=== PATIENT | female | born 1955 | race Two or more races ===

== ENCOUNTER 2019-04-27 09:44 | Emergency (ER) | payer OTHER ==
[~2019-04-27] VITALS: Ht 162.6 cm; Wt 94.8 kg
== END 2019-04-27 14:00 | disposition home or self-care (01) ==
LOC: ER 09:44
DX: B34.9 Viral infection, unspecified (principal); R06.02 Shortness of breath

== ENCOUNTER 2019-06-03 10:36 | Emergency (ER) | payer OTHER ==
[~2019-06-03] VITALS: Ht 162.6 cm; Wt 94.3 kg
== END 2019-06-03 14:30 | disposition home or self-care (01) ==
LOC: ER 10:36
DX: I82.491 Acute embolism and thrombosis of other specified deep vein of right lower extremity (principal)

== ENCOUNTER 2019-07-11 18:08 | Emergency (ER) | payer OTHER ==
[~2019-07-11] VITALS: Ht 162.6 cm; Wt 94.3 kg
[2019-07-11] MEDS ORDERED: ELIQUIS5 MG (18:40)
== END 2019-07-11 21:17 | disposition home or self-care (01) ==
LOC: ER 18:08
DX: R21 Rash and other nonspecific skin eruption (principal)

== ENCOUNTER 2020-12-13 07:18 | Outpatient (CLI) | payer OTHER ==
[~2020-12-13 07:18] MED LIST: ELIQUIS5 MG
== END 2020-12-13 07:19 | disposition home or self-care (01) ==
LOC: LAB 07:18
DX: E03.8 Other specified hypothyroidism (principal); I82.501 Chronic embolism and thrombosis of unspecified deep veins of right lower extremity; E78.00 Pure hypercholesterolemia, unspecified; I10 Essential (primary) hypertension; N39.0 Urinary tract infection, site not specified; E55.9 Vitamin D deficiency, unspecified

== ENCOUNTER → 2024-08-24 | Emergency (ER) | payer OTHER ==
[~2024-08-24] VITALS: Ht 162.6 cm; Wt 86.2 kg
[~2024-08-24] MED LIST changes: +DEXAMETHASONE SODIUM PHOSPHATE 4 MG/ML VIAL IM STA; +DEXAMETHASONE SODIUM PHOSPHATE 4 MG/ML VIAL ONE; +ORPHENADRINE CITRATE 30 MG/ML AMPUL IM STA; +ORPHENADRINE CITRATE 30 MG/ML AMPUL ONE; +TRAMADOL HCL 50 MG TABLET PO STA
== END | disposition home or self-care (01) ==
LOC: ER 19:45
DX: M54.41 Lumbago with sciatica, right side (principal); Z88.6 Allergy status to analgesic agent; Z88.0 Allergy status to penicillin
CPT/HCPCS: 96372; 99282; J1100; J2360